=== PATIENT | female | born 1960 | race Caucasian/White ===

== ENCOUNTER → 2016-08-03 | Outpatient (CLI) | payer BC ==
[~2016-08-03] MED LIST: ASCA500 PO; CLON0.5T3 PO; IRON PO; OMEP40CA36 PO; ONDA8TAB62 SL; SUCR1TAB29 PO; SYN75 PO
== END | disposition home or self-care (01) ==
LOC: C.PATHSPEC 14:35
PROVIDERS: ATTEND Dermatology
DX: D23.5 Other benign neoplasm of skin of trunk (principal); D23.9 Other benign neoplasm of skin, unspecified

== ENCOUNTER → 2017-01-16 | Outpatient (CLI) | payer BC ==
[2017-01-16 14:24] LABS: ALT/SGPT 26 U/L (12-78); BLOOD UREA NITROGEN 6 mg/dl (7-18); BUN/CREATININE RATIO 8.9 (10-20); CARBON DIOXIDE 25 mmol/L (21-32); CHLORIDE 106 mmol/L (98-107); CREATININE 0.69 mg/dl (0.60-1.20); GLUCOSE 92 mg/dl (70-99); POTASSIUM 3.9 mmol/L (3.5-5.1); SODIUM 140 mmol/L (136-145)
[2017-01-16 14:35] LABS: ALKALINE PHOSPHATASE 119 U/L (45-117); AST/SGOT 19 U/L (15-37)
== END | disposition home or self-care (01) ==
LOC: C.LABBC 11:23
PROVIDERS: ATTEND Family Medicine
DX: E03.9 Hypothyroidism, unspecified (principal); K50.10 Crohn's disease of large intestine without complications; Z11.59 Encounter for screening for other viral diseases

== ENCOUNTER → 2017-03-22 | Outpatient (CLI) | payer BC ==
--- NOTE | 2017-03-22 11:15 | DIAGNOSTIC IMAGING REPORT ---
PELVIC COMPLETE NON OB HISTORY: 56 years-old Female L65.9 Alopecia . History of uterine fibroids and prior tubal ligation. COMPARISON: Pelvic ultrasound 12/07/2016, CT abdomen and pelvis 06/20/2016 TECHNIQUE: Multiple real-time static images of the deep pelvic structures were obtained transabdominally assessing grayscale appearance. FINDINGS: Lack of transvaginal images limits the study. Transvaginal portion of the study was attempted, however was uncomfortable for the patient. Bilateral ovaries are not diagnostically visualized secondary to body habitus and obscuring bowel gas. Uterus measures 6.0 x 2.6 x 3.3 cm and is anteflexed. Endometrium is homogeneous, 0.2 cm. There is a focal area within the fundal aspect of the intramural uterus, 0.3 x 0.3 x 0.3 cm which is nonspecific and may reflect a centrally calcified fibroid. There is a hypoechoic structure adjacent to the posterior right uterus which appears to be a pedunculated fibroid, 3.3 x 2.6 x 2.1 cm. This appears unchanged from comparison study. No significant free pelvic fluid. IMPRESSION: 1. Limited study secondary to patient unable to tolerate the transvaginal component of the exam. 2. Bilateral ovaries are not diagnostically visualized. 3. Hypoechoic structure measuring up to 3.3 cm adjacent to the posterior right fundal uterus appears similar from study dated 12/07/2016 suggesting pedunculated fibroid. 0.3 cm partially calcified structure of the mid intramural fundal uterus may reflect a partially calcified fibroid. The above report was generated using voice recognition software. It may contain grammatical, syntax or spelling errors. Electronically signed by: Aidan Deluca M.D. 03/22/2017 11:14 AM Dictated Date/Time: 03/22/2017 11:07 AM
== END | disposition home or self-care (01) ==
LOC: C.ULTRBC 09:39
PROVIDERS: ATTEND Physician Assistant
DX: L65.9 Nonscarring hair loss, unspecified (principal)

== ENCOUNTER → 2017-04-06 | Outpatient (CLI) | payer BC ==
[2017-04-06 16:37] LABS: BASO % 0.2 %; BASO ABS # 0.02 K/uL (0-0.2); COMPLETE YES; HEMATOCRIT 47.1 % (37-47); IG% 0.3 %; LYMPH % 32.9 %; LYMPH ABS # 3.22 K/uL (1.2-3.4); MEAN CELL VOLUME 103.1 fL (80-100); MEAN CORPUSCULAR HEMOGLOBIN 33.3 pg (25-34); MEAN CORPUSCULAR HGB CONC 32.3 g/dl (32-36); MONO % 7.5 %; NEUT % 58.1 %; PLATELET COUNT 296 K/uL (130-400); RED BLOOD COUNT 4.57 M/uL (4.2-5.4); WHITE BLOOD COUNT 9.79 K/uL (4.8-10.8)
== END | disposition home or self-care (01) ==
LOC: C.LABBC 12:10
PROVIDERS: ATTEND Physician Assistant Medical
DX: E03.9 Hypothyroidism, unspecified (principal); D64.9 Anemia, unspecified

== ENCOUNTER → 2017-04-20 | Outpatient (CLI) | payer BC ==
[2017-04-20 14:02] LABS: BLOOD UREA NITROGEN 10 mg/dl (7-18); CREATININE 0.75 mg/dl (0.60-1.20)
== END | disposition home or self-care (01) ==
LOC: C.LABBC 12:02
PROVIDERS: ATTEND Physician Assistant
DX: L65.9 Nonscarring hair loss, unspecified (principal)

== ENCOUNTER → 2017-10-18 | Outpatient (CLI) | payer BC ==
--- NOTE | 2017-10-18 12:18 | DIAGNOSTIC IMAGING REPORT ---
SOFT TISS HEAD/NECK-THYROID CLINICAL HISTORY: 56 years-old Female presenting with E06.3,E04.1 thyroid nodules, Meghan's thyroiditis. TECHNIQUE: Real-time grayscale and color Doppler ultrasound imaging of the thyroid and base of the neck was performed. COMPARISON: 12/20/2009 FINDINGS: Right lobe: Heterogeneous echotexture and echogenicity. The right lobe of the thyroid measures 3.9 x 1.0 x 1.3 cm. No parenchymal hyperemia. No nodules. Left lobe: Heterogeneous echotexture and echogenicity. The left lobe of the thyroid measures 2.5 x 0.8 x 0.7 cm. No parenchymal hyperemia. No nodules. Isthmus: The isthmus measures 1 mm in thickness. No parenchymal hyperemia. No nodules. IMPRESSION: Diffusely heterogeneous thyroid parenchyma consistent with known diagnosis of Meghan's thyroiditis. No discrete nodule. Electronically signed by: Anish Cowart M.D. 10/18/2017 12:17 PM Dictated Date/Time: 10/18/2017 12:16 PM
== END | disposition home or self-care (01) ==
LOC: C.ULTRBC 10:52
PROVIDERS: ATTEND Nurse Practitioner Adult Health
DX: E04.1 Nontoxic single thyroid nodule (principal); E06.3 Autoimmune thyroiditis

== ENCOUNTER → 2017-12-17 | Outpatient (CLI) | payer BC ==
[2017-12-17 10:38] LABS: BASO % 0.3 %; BASO ABS # 0.03 K/uL (0-0.2); EOS % 2.4 %; EOS ABS # 0.28 K/uL (0-0.5); HEMATOCRIT 41.4 % (37-47); HEMOGLOBIN 14.3 g/dL (12.0-16.0); IG# 0.03 K/uL (0.00-0.02); LYMPH % 33.8 %; LYMPH ABS # 3.89 K/uL (1.2-3.4); MEAN CELL VOLUME 99.3 fL (80-100); MEAN CORPUSCULAR HEMOGLOBIN 34.3 pg (25-34); MEAN CORPUSCULAR HGB CONC 34.5 g/dl (32-36); MEAN PLATELET VOLUME 9.8 fL (7.4-10.4); MONO % 5.7 %; MONO ABS # 0.66 K/uL (0.11-0.59); NEUT % 57.5 %; NEUT ABS # 6.61 K/uL (1.4-6.5); PLATELET COUNT 296 K/uL (130-400); RED CELL DISTRIBUTION WIDTH CV 13.7 % (11.5-14.5); RED CELL DISTRIBUTION WIDTH SD 49.8 fL (36.4-46.3)
[2017-12-17 10:59] LABS: ALBUMIN 3.6 gm/dl (3.4-5.0); ALKALINE PHOSPHATASE 122 U/L (45-117); ALT/SGPT 21 U/L (12-78); AST/SGOT 20 U/L (15-37); BLOOD UREA NITROGEN 12 mg/dl (7-18); CALCIUM 9.6 mg/dl (8.5-10.1); CARBON DIOXIDE 24 mmol/L (21-32); CHOLESTEROL 137 mg/dl (0-200); CREATININE 0.66 mg/dl (0.60-1.20); GLUCOSE 87 mg/dl (70-99); LDL CHOLESTEROL CALCULATED 44 mg/dl; POTASSIUM 3.8 mmol/L (3.5-5.1); SODIUM 140 mmol/L (136-145); TOTAL PROTEIN 7.8 gm/dl (6.4-8.2)
== END | disposition home or self-care (01) ==
LOC: C.LABBC 08:50
PROVIDERS: ATTEND Nurse Practitioner Adult Health
DX: E03.9 Hypothyroidism, unspecified (principal); E78.5 Hyperlipidemia, unspecified; E53.8 Deficiency of other specified B group vitamins; D64.9 Anemia, unspecified